=== PATIENT | male | born 1975 | race Caucasian/White ===

== ENCOUNTER 2016-06-27 12:54 | Emergency (ER) | payer MEDICAID ==
[~2016-06-27] VITALS: Ht 180.3 cm; Wt 80.0 kg
--- OUTSIDE RECORDS SUMMARY | 2016-06-27 12:59 | XMS REPORT ---
Author Amanuel Romero Organization [employer] Address Unknown Phone Unavailable Care Team Providers Care Glass Belt Sander Name Role Phone Amanuel Hines CP Unavailable Allergies, Adverse Reactions, Alerts Substance Reaction Event Type N.K.D.A. Info Not Available Non Drug Allergy Problems Problem Type Condition ICD-9 Code Onset Dates Condition Status Problem Lumbosacral radiculopathy due to degenerative joint disease of spine 722.52 Active Assessment Lumbosacral radiculopathy due to degenerative joint disease of spine 722.52 Active Problem Osteomyelitis 730.20 Active Medications Medication Code System Code Instructions Start Date End Date Status Dosage Hydrocodone-Acetaminophen NDC [address]-24 7.5-325 MG Orally TID Mar 14, 2013 Active 1 tablet as needed Ibuprofen NDC 0 800MG Not Specified Orally TID Active take one tablet by mouth three times a day Gabapentin NDC [address]-20 600 MG Orally TID Active 1 Caplet Procedures Procedure Coding System Code Date OFFICE VISITEST PT CPT-4 04244 Dec 19, 2013 Vital Signs Date/Time: Dec 19, 2013 Blood Pressure Systolic 122 mm Hg Height 72 in Weight 176 lbs BMI 23.87 Index Cardiac Monitoring Heart Rate 76 /min Temperature 98.8 F Blood Pressure Diastolic 78 mm Hg Results No Known Results Summary Purpose [employer] Submission
--- OUTSIDE RECORDS SUMMARY | 2016-06-27 12:59 | XMS REPORT ---
Author Author Amanuel Hines Organization [employer] Address Unknown Phone Unavailable Care Team Providers Care Order Picker Name Role Phone Amanuel Hines CP Unavailable Allergies No Known Allergies Problems Problem Type Condition Code Onset Dates Condition Status Problem Lumbosacral radiculopathy due to degenerative joint disease of spine 722.52 Active Medications No Known Medications Results No Known Results Summary Purpose [employer] Submission
--- OUTSIDE RECORDS SUMMARY | 2016-06-27 12:59 | XMS REPORT ---
Author Amanuel Romero Organization [employer] Address Unknown Phone Unavailable Care Team Providers Care Shear Operator Helper Name Role Phone Amanuel Hines CP Unavailable Allergies No Known Allergies Problems Problem Type Condition ICD-9 Code Onset Dates Condition Status Problem Lumbosacral radiculopathy due to degenerative joint disease of spine 722.52 Active Problem Osteomyelitis 730.20 Active Medications Medication Code System Code Instructions Start Date End Date Status Dosage Gabapentin [facility] [address]-43 600 MG Orally TID Active 1 caplet Results No Known Results Summary Purpose [employer] Submission
--- OUTSIDE RECORDS SUMMARY | 2016-06-27 12:59 | XMS REPORT ---
Author Amanuel Romero Organization [employer] Address Unknown Phone Unavailable Care Team Providers Care Automobile Parts Assembler Name Role Phone Amanuel Hines CP Unavailable Allergies, Adverse Reactions, Alerts Substance Reaction Event Type N.K.D.A. Info Not Available Non Drug Allergy Problems Problem Type Condition ICD-9 Code Onset Dates Condition Status Assessment Lumbosacral radiculopathy due to degenerative joint disease of spine 722.52 Active Problem Lumbosacral radiculopathy due to degenerative joint disease of spine 722.52 Active Medications Medication Code System Code Instructions Start Date End Date Status Dosage Gabapentin NDC [address]-82 600 MG Orally TID 1 caplet Cymbalta NDC [address]-58 60 MG Orally Once a day September 07, 2014 1 capsule Ibuprofen NDC 0 800MG Not Specified Orally TID take one tablet by mouth three times a day Hydrocodone-Acetaminophen NDC [address]-99 7.5-325 MG Orally TID Mar 14, 2013 1 tablet as needed Procedures Procedure Coding System Code Date OFFICE VISITEST PT CPT-4 40055 Oct 04, 2014 Vital Signs Date/Time: Oct 04, 2014 Blood Pressure Systolic 130 mm Hg Height 72 in Weight 170.2 lbs BMI 23.08 Index Blood Pressure Diastolic 76 mm Hg Results No Known Results Summary Purpose [employer] Submission
--- OUTSIDE RECORDS SUMMARY | 2016-06-27 12:59 | XMS REPORT ---
Author Amanuel Romero Organization [employer] Address Unknown Phone Unavailable Care Team Providers Care Director Physical Therapy Name Role Phone Amanuel Hines CP Unavailable [...] Instructions Start Date End Date Status Dosage Ibuprofen NDC 0 800MG Not Specified Orally TID Active take one tablet by mouth three times a day Gabapentin NDC [address]-48 600 MG Orally TID Active 1 caplet Hydrocodone-Acetaminophen NDC [address]-36 7.5-325 MG Orally TID Mar 14, 2013 Active 1 tablet as needed Procedures Procedure Coding System Code Date OFFICE VISITEST PT CPT-4 96143 Jan 16, 2014 Vital Signs Date/Time: Jan 16, 2014 Blood Pressure Systolic 110 mm Hg Height 72 in Weight 172 lbs BMI 23.32 Index Cardiac Monitoring Heart Rate 72 /min Temperature 98.4 F Blood Pressure Diastolic 60 mm Hg Results No Known Results Summary Purpose [employer] Submission
--- OUTSIDE RECORDS SUMMARY | 2016-06-27 12:59 | XMS REPORT ---
Author Author Amanuel Hines Organization [employer] Address Unknown Phone Unavailable Care Team Providers Care First Mate Name Role Phone Amanuel Hines CP Unavailable Allergies No Known Allergies Problems Problem Type Condition ICD-9 Code Onset Dates Condition Status Problem Lumbosacral radiculopathy due to degenerative joint disease of spine 722.52 Active Medications No Known Medications Results No Known Results Summary Purpose [employer] Submission
--- OUTSIDE RECORDS SUMMARY | 2016-06-27 12:59 | XMS REPORT ---
Author Amanuel Romero Organization [employer] Address Unknown Phone Unavailable Care Team Providers Care Refractory Manager Name Role Phone Amanuel Hines CP Unavailable [...] mouth three times a day Hydrocodone-Acetaminophen NDC [address]-77 7.5-325 MG Orally TID Mar 14, 2013 Active 1 tablet as needed Gabapentin NDC [address]-34 600 MG Orally TID Active 1 Caplet Procedures Procedure Coding System Code Date OFFICE VISITEST PT CPT-4 61014 Nov 22, 2013 Vital Signs Date/Time: Nov 22, 2013 Blood Pressure Systolic 132 mm Hg Height 72 in Weight 176 lbs BMI 23.87 Index Cardiac Monitoring Heart Rate 76 /min Temperature 98.5 F Blood Pressure Diastolic 72 mm Hg Results No Known Results Summary Purpose [employer] Submission
--- OUTSIDE RECORDS SUMMARY | 2016-06-27 13:00 | XMS REPORT ---
Author Amanuel Romero Organization [employer] Address Unknown Phone Unavailable Care Team Providers Care Business Operations Manager Name Role Phone Amanuel Hines CP Unavailable Allergies, Adverse Reactions, Alerts Substance Reaction Event Type N.K.D.A. Info Not Available Non Drug Allergy Problems Problem Type Condition Code Onset Dates Condition Status Assessment Lumbosacral radiculopathy due to degenerative joint disease of spine 722.52 Active Problem Lumbosacral radiculopathy due to degenerative joint disease of spine 722.52 Active Medications Medication Code System Code Instructions Start Date End Date Status Dosage Gabapentin [facility] [address]-18 600 MG Orally TID 1 caplet Ibuprofen NDC 0 800MG Not Specified Orally TID take one tablet by mouth three times a [place] [address]-25 7.5-325 MG Orally TID Mar 14, 2013 1 tablet as needed Procedures Procedure Coding System Code Date OFFICE VISITEST PT CPT-4 83184 June 22, 2014 Vital Signs Date/Time: June 22, 2014 Blood Pressure Systolic 114 mm Hg Height 72 in Weight 175 lbs BMI 23.73 Index Cardiac Monitoring Heart Rate 64 /min Temperature 97.9 F Blood Pressure Diastolic 72 mm Hg Results No Known Results Summary Purpose [employer] Submission
--- OUTSIDE RECORDS SUMMARY | 2016-06-27 13:00 | XMS REPORT ---
Author Author Amanuel Hines Organization [employer] Address Unknown Phone Unavailable Care Team Providers Care Continuous Improvement Consultant Name Role Phone Amanuel Hines CP Unavailable [...] Start Date End Date Status Dosage Hydrocodone-Acetaminophen [facility] [address]-65 7.5-325 MG Orally TID Mar 14, 2013 1 tablet as needed Gabapentin [facility] [address]-82 600 MG Orally TID 1 caplet Ibuprofen NDC 0 800MG Not Specified Orally TID take one tablet by mouth three times a day Cymbalta [facility] [address]-31 60 MG Orally Once a day September 07, 2014 1 capsule Procedures Procedure Coding System Code Date OFFICE VISITEST PT CPT-4 37425 Oct 31, 2014 Vital Signs Date/Time: Oct 31, 2014 Blood Pressure Systolic 104 mm Hg Height 72 in Weight 171 lbs BMI 23.19 Index Blood Pressure Diastolic 74 mm Hg Results No Known Results Summary Purpose [employer] Submission
--- OUTSIDE RECORDS SUMMARY | 2016-06-27 13:00 | XMS REPORT ---
Author Amanuel Romero Organization [employer] Address Unknown Phone Unavailable Care Team Providers Care Trauma Coordinator Name Role Phone Amanuel Hines CP Unavailable [...] Start Date End Date Status Dosage Hydrocodone-Acetaminophen [facility] [address]-70 7.5-325 MG Orally TID Mar 14, 2013 Active 1 [place] [address]-94 600 MG Orally TID Active 1 caplet Ibuprofen NDC 0 800MG Not Specified Orally TID Active take one tablet by mouth three times a day Procedures Procedure Coding System Code Date OFFICE VISITEST PT CPT-4 89287 Feb 10, 2014 Vital Signs Date/Time: Feb 10, 2014 Blood Pressure Systolic 104 mm Hg Height 72 in Weight 172 lbs BMI 23.32 Index Temperature 98.6 F Blood Pressure Diastolic 62 mm Hg Results No Known Results Summary Purpose [employer] Submission
--- OUTSIDE RECORDS SUMMARY | 2016-06-27 13:00 | XMS REPORT ---
Author Amanuel Romero Organization [employer] Address Unknown Phone Unavailable Care Team Providers Care Copy Center Specialist Name Role Phone Amanuel Hines CP Unavailable [...] Date End Date Status Dosage Gabapentin NDC [address]-19 600 MG Orally TID 1 caplet Hydrocodone-Acetaminophen NDC [address]-17 7.5-325 MG Orally TID Mar 14, 2013 1 tablet as needed Ibuprofen NDC 0 800MG Not Specified Orally TID take one tablet by mouth three times a day Procedures Procedure Coding System Code Date OFFICE VISITEST PT CPT-4 41775 May 26, 2014 Vital Signs Date/Time: May 26, 2014 Blood Pressure Systolic 112 mm Hg Height 72 in Weight 173 lbs BMI 23.46 Index Cardiac Monitoring Heart Rate 64 /min Temperature 98.2 F Blood Pressure Diastolic 80 mm Hg Results No Known Results Summary Purpose [employer] Submission
--- OUTSIDE RECORDS SUMMARY | 2016-06-27 13:00 | XMS REPORT | Continuity of Care Document ---
Author Author [facility] Organization [facility] Address Unknown Phone Unavailable Allergies Active Description Code Type Severity Reaction Onset Reported/Identified Relationship to Patient Clinical Status Yes No Known Allergies No Known Allergies Drug Allergy Unknown N/A 04/08/2015 Medications Problems Date Dx Coded Attending Type Code Diagnosis Diagnosed By 02/12/2016 SUSAN BLUE G89.29 OTHER CHRONIC PAIN 05/07/2016 SUSAN BLUE G89.29 OTHER CHRONIC PAIN Procedures Results Encounters ACCT No. Visit Date/Time Discharge Status Pt. Type Provider Facility Loc./Unit Complaint [id number] 05/04/2015 16:17:00 2015 18:01:[id number] 04/08/2015 14:43:00 2015 16:53:00 [id number] 09/15/2014 21:04:00 2014 22:25:00 [id number] 05/27/2014 21:54:00 2014 23:53:00 DIS Emergency [facility]YALA[facility]
--- OUTSIDE RECORDS SUMMARY | 2016-06-27 13:00 | XMS REPORT ---
Author Amanuel Romero Organization [employer] Address Unknown Phone Unavailable Care Team Providers Care Cancer Genetics Assistant Name Role Phone Amanuel Hines CP Unavailable [...] Start Date End Date Status Dosage Hydrocodone-Acetaminophen [facility] [address]-22 7.5-325 MG Orally TID Mar 14, 2013 1 [place] [address]-27 600 MG Orally TID 1 caplet Ibuprofen NDC 0 800MG Not Specified Orally TID take one tablet by mouth three times a day Procedures Procedure Coding System Code Date OFFICE VISITEST PT CPT-4 47071 August 07, 2014 Vital Signs Date/Time: August 07, 2014 Blood Pressure Systolic 122 mm Hg Height 72 in Weight 166 lbs BMI 22.51 Index Cardiac Monitoring Heart Rate 64 /min Temperature 98.2 F Blood Pressure Diastolic 60 mm Hg Results No Known Results Summary Purpose [employer] Submission
--- OUTSIDE RECORDS SUMMARY | 2016-06-27 13:00 | XMS REPORT ---
Author Amanuel Romero Organization [employer] Address Unknown Phone Unavailable Care Team Providers Care Assisted Living Associate Name Role Phone Amanuel Hines CP Unavailable Allergies No Known Allergies Problems Problem Type Condition ICD-9 Code Onset Dates Condition Status Problem Lumbosacral radiculopathy due to degenerative joint disease of spine 722.52 Active Medications No Known Medications Results No Known Results Summary Purpose [employer] Submission
--- OUTSIDE RECORDS SUMMARY | 2016-06-27 13:00 | XMS REPORT ---
Author Author Amanuel Hines Organization [employer] Address Unknown Phone Unavailable Care Team Providers Care O And M Supervisor Name Role Phone Amanuel Hines CP Unavailable Allergies No Known Allergies Problems Problem Type Condition ICD-9 Code Onset Dates Condition Status Problem Lumbosacral radiculopathy due to degenerative joint disease of spine 722.52 Active Medications No Known Medications Results No Known Results Summary Purpose [employer] Submission
--- OUTSIDE RECORDS SUMMARY | 2016-06-27 13:00 | XMS REPORT ---
Author Author Amanuel Hnies Organization [employer] Address Unknown Phone Unavailable Care Team Providers Care Low Emission Automobile Designer Name Role Phone Amanuel Hines CP Unavailable Allergies No Known Allergies Problems Problem Type Condition Code Onset Dates Condition Status Problem Lumbosacral radiculopathy due to degenerative joint disease of spine 722.52 Active Medications No Known Medications Results No Known Results Summary Purpose [employer] Submission
--- OUTSIDE RECORDS SUMMARY | 2016-06-27 13:00 | XMS REPORT ---
Author Amanuel Romero Organization [employer] Address Unknown Phone Unavailable Care Team Providers Care Clinical Staff Rn Name Role Phone Amanuel Hines CP Unavailable [...] Start Date End Date Status Dosage Hydrocodone-Acetaminophen [facility] [address]-13 7.5-325 MG Orally TID Mar 14, 2013 1 [place] [address]-90 600 MG Orally TID 1 caplet Ibuprofen NDC 0 800MG Not Specified Orally TID take one tablet by mouth three times a day Procedures Procedure Coding System Code Date OFFICE VISITEST PT CPT-4 16997 May 01, 2014 Vital Signs Date/Time: May 01, 2014 Blood Pressure Systolic 112 mm Hg Height 72 in Weight 175 lbs BMI 23.73 Index Cardiac Monitoring Heart Rate 64 /min Temperature 98.9 F Blood Pressure Diastolic 78 mm Hg Results No Known Results Summary Purpose [employer] Submission
--- OUTSIDE RECORDS SUMMARY | 2016-06-27 13:00 | XMS REPORT ---
Author Author Amanuel Hines Organization [employer] Address Unknown Phone Unavailable Care Team Providers Care Special Education Preschool Teacher Name Role Phone Amanuel Hines CP Unavailable Allergies No Known Allergies Problems Problem Type Condition ICD-9 Code Onset Dates Condition Status Problem Lumbosacral radiculopathy due to degenerative joint disease of spine 722.52 Active Medications No Known Medications Results No Known Results Summary Purpose [employer] Submission
--- OUTSIDE RECORDS SUMMARY | 2016-06-27 13:00 | XMS REPORT ---
Author Author Amanuel Hines Organization [employer] Address Unknown Phone Unavailable Care Team Providers Care Competency Evaluated Nurse Aide Name Role Phone Amanuel Hines CP Unavailable Allergies, Adverse Reactions, Alerts Substance Reaction Event Type N.K.D.A. Info Not Available Non Drug Allergy Problems Problem Type Condition ICD-9 Code Onset Dates Condition Status Assessment Lumbosacral radiculopathy due to degenerative joint disease of spine 722.52 Active Assessment Chronic pain 338.29 Active Problem Lumbosacral radiculopathy due to degenerative joint disease of spine 722.52 Active Medications Medication Code System Code Instructions Start Date End Date Status Dosage Hydrocodone-Acetaminophen [facility] [address]-73 7.5-325 MG Orally TID Mar 14, 2013 1 tablet as needed Gabapentin [facility] [address]-32 600 MG Orally TID 1 caplet Cymbalta [facility] [address]-10 60 MG Orally Once a day September 07, 2014 1 capsule Ibuprofen NDC 0 800MG Not Specified Orally TID take one tablet by mouth three times a day Procedures Procedure Coding System Code Date OFFICE VISITEST PT CPT-4 36703 September 07, 2014 Vital Signs Date/Time: September 07, 2014 Blood Pressure Systolic 138 mm Hg Height 72 in Weight 163.8 lbs BMI 22.21 Index Cardiac Monitoring Heart Rate 96 /min Temperature 98.1 F Blood Pressure Diastolic 60 mm Hg Results No Known Results Summary Purpose [employer] Submission
--- OUTSIDE RECORDS SUMMARY | 2016-06-27 13:00 | XMS REPORT ---
Author Amanuel Romero Organization [employer] Address Unknown Phone Unavailable Care Team Providers Care Edge Trimmer Name Role Phone Amanuel Hines CP Unavailable [...] mouth three times a [place] [address]-52 600 MG Orally TID 1 caplet Hydrocodone-Acetaminophen NDC [address]-44 7.5-325 MG Orally TID Mar 14, 2013 1 tablet as needed Procedures Procedure Coding System Code Date OFFICE VISITEST PT CPT-4 07120 Mar 08, 2014 Vital Signs Date/Time: Mar 08, 2014 Blood Pressure Systolic 118 mm Hg Height 72 in Weight 179 lbs BMI 24.27 Index Cardiac Monitoring Heart Rate 68 /min Temperature 98.6 F Blood Pressure Diastolic 70 mm Hg Results No Known Results Summary Purpose [employer] Submission
--- OUTSIDE RECORDS SUMMARY | 2016-06-27 13:00 | XMS REPORT ---
Author Author Amanuel Hines Organization [employer] Address Unknown Phone Unavailable Care Team Providers Care Physician Scientist Name Role Phone Amanuel Hines CP Unavailable Allergies No Known Allergies Problems Problem Type Condition ICD-9 Code Onset Dates Condition Status Problem Lumbosacral radiculopathy due to degenerative joint disease of spine 722.52 Active Medications No Known Medications Results No Known Results Summary Purpose [employer] Submission
[2016-06-27 13:16] VITALS: Ht 180.3 cm; Wt 80.0 kg
[2016-06-27] MEDS ORDERED: HYDR-4246 PO (13:55)
[2016-06-27] MEDS ORDERED: AMOX875T2 PO (13:55)
[2016-06-27] MEDS ORDERED: GABA-354 PO (13:56)
--- NOTE | 2016-06-27 13:56 | ERPDOC ---
Departure Disposition Decision Date: June 27, 2016 Disposition Decision Time: 13:53 Disposition: 01 DISCHARGED HOME, SELF-CARE Impression Impression Impression: Primary Impression: Acute sinusitis Sinusitis location: unspecified location Recurrence: non-recurrent Qualified Codes: J01.90 - Acute sinusitis, unspecified Severity: Mild Condition: Improved Seen By: Physician only Referrals: [facility] 2 Days Patient Instructions: Sinusitis (ED) Problems/Meds/Labs Reviewed?: Yes Medications reviewed and manag: Yes Follow up care ordered?: Yes Mental Status: Alert, Oriented Scripts Hydrocodone/Acetaminophen (Easton 5-325 Tablet) 5-325 Tablet 1 TAB PO Q4HR Y for PAIN for 2 Days, #12 TAB 0 Refills Prov: GALLITO GANDHI DO 06/27/16 Amoxicillin (Amoxicillin) 875 Mg Tablet 1 TAB PO Q12H for 14 Days, #28 TAB 0 Refills Prov: GALLITO GANDHI DO 06/27/16 HPI - General Medical General Chief Complaint: Headache Stated Complaint: HEADACHE Time Seen by Provider: 13:47 Source: patient Exam Limitations: no limitations HPI - General Medical Initial Comments 40-year-old male presents to the emergency department with a chief complaint of nasal congestion, post-nasal drip, and pressure in his maxillary and frontal sinuses. Patient noted onset of symptoms 2 days ago. Symptoms are similar to patient's prior exacerbations of sinusitis. Patient describes his headache as moderate. No radiation. It is dull. He notes the headache improves with Easton 10 that he takes for his chronic back pain. Patient denies any other complaints or associated symptoms. Patient was at home when the symptoms began. He denies trauma or injury. Symptoms have been gradual in progression in nature. Patient denies any other complaints or associated symptoms. Occurred At: home Onset: Gradual Allergies: Coded Allergies: No Known Allergies (Unverified , 06/27/16) Past History Past Medical History Pt denies signifigant [facility] Surgical History Denies Surgeries Family History Family History: Negative Social History Smoking Status: Never smoker Substance Use Type: does not use Alcohol Intake: none Review of Systems Constitutional Constitutional: DENIES: chills, fever Eyes General: DENIES: erythema, exudate Lids/Accessories: DENIES: erythema, swelling Vision: DENIES: acuity, blurring ENMT Ears: DENIES: drainage, erythema Hearing: DENIES: hearing loss Balance: DENIES: ataxia, falling to one side Sinuses: DENIES: congestion, pain Nose: DENIES: nosebleeds, pain Mouth/Throat: DENIES: drooling, sore throat Teeth: DENIES: pain Jaw: DENIES: pain Cardiovascular Cardiac: DENIES: chest pain, dyspnea on exertion Rhythm/Rate: DENIES: irregular beat, palpitations Vascular: DENIES: pedal edema, unilateral swelling Pulmonary Respiratory: DENIES: cough, dyspnea, pleuritic chest pain, sputum GI Upper Abdomen: DENIES: nausea, pain, vomiting Lower Abdomen: DENIES: diarrhea, pain General: DENIES: dysuria, frequency, urgency Musculoskeletal General: DENIES: joint pain, tenderness Integumentary Skin: DENIES: itching, rash Neurological General: headache, DENIES: change in strength, numbness, weakness Psychiatric Psychiatric: DENIES: emotional instability, suicidal ideation/attempt Endocrine Endocrine: DENIES: polydipsia, polyphagia Hematologic/Lymphatic Hematologic/Lymphatic: DENIES: frequent nosebleeds, lymphadenopathy Allergic/Immunological Allergic/Immunoligical: DENIES: allergic reactions, hives Physical Exam General General Nourishment: well nourished, well developed, appears stated age, no acute distress, adult General Body Habitus: well groomed Vitals and Pain First Documented Vital Signs Date Time Temp Pulse Resp B/P Pulse Ox O2 Delivery O2 Flow Rate FiO2 06/27/16 13:16 99.8 86 14 127/77 99 Room Air Weight: Kilograms: 80.000 Height (feet): 5 Height (inches): 11.00 Triage Pain Scale: RN VS reviewed by Provider: Yes Normal Exams: Head: Normocephalic w/o trauma Eyes: Pupils are PERRLA w/ EOMI, No scleral icterus, irritation, or foreign bodies noted ENMT: No facial trauma, nasal exudates, pharyngeal erythema, or exudates are noted Dental: No fractured, loose, or missing teeth noted Neck: Full range of motion, without adenopathy, JVD, bruits or thyromegaly Chest/Resp: Clear all grimes, with good airflow, and symmetry bilaterally CV: Regular rate and rhythm, without murmur or gallop, Pulses 2+ all extremities, capillary refill, <2 seconds all ext., no pedal edema noted Abdomen: Bowel sounds positive, soft, non-tender, non-distended, no hepatosplenomegaly, masses or bruits noted Lymphatic: No lymphadenopathy, or lymphedema noted Musculoskeletal: No tenderness, or deformity noted, good range of motion, all extremities Integumentary: No rashes, hives, or bruising noted, hair and nails, without abnormality Neurologic: Patient is alert, and oriented, cranial nerves, motor/sensory/ cerebellar, exams w/o gross deficits, to observation Psychiatric: Patient exhibits, appropriate attention, emotion and affect Neurologic (brief) Comments Alert and oriented x 4. CN 2-12 intact. Sensation intact. Normal motor. Normal gait. Normal coordination. Normal speech. Absent Babinski bilaterally. Reflexes 2/4 in all extremities. Normal neurologic examination. No focal neurologic deficit. Normal strength. Differential Diagnoses Considering: Other (general headache/tension headache/migraine headache/acute sinusitis) Progress Progress Progress Patient was recommended to undergo CT scan of the head /sinuses which he declines. Patient declines offered analgesic pain medication. Patient is provided with a prescription for amoxicillin 875 mg by mouth twice a day 14 days. Patient is instructed to use Flonase [id number] as directed. Patient is in agreement with the current plan of management. Patient is discharged home in improved condition. Patient is to follow up as instructed. Patient is to return to the emergency Department if his condition worsens or changes in any manner. GALLITO GANDHI DO June 27, 2016 13:55
[2016-06-27] MEDS ORDERED: HYDR-4078 PO (13:57)
[2016-06-27 14:18] VITALS: BP 118/72; PULSE 88; RESP 16; TEMP 99.7; O2SAT 96
--- NOTE | 2016-06-27 14:18 | NUR ---
DISMISS PT AMBULATORY TO LOBBY AT THIS TIME. GAIT STEADY; PT DENIES FURTHER QUESTIONS.
--- OUTSIDE RECORDS SUMMARY | 2016-06-27 14:39 | XMS REPORT | Continuity of Care Document ---
Author Author [facility] Organization [facility] Address Unknown Phone Unavailable Allergies Active Description [...] Status Pt. Type Provider Facility Loc./Unit Complaint [id number] 05/04/2015 16:17:00 2015 18:01:00 [id number] 04/08/2015 14:43:00 2015 16:53:00 [id number] 09/15/2014 21:04:00 2014 22:25:00 DIS [id number] 05/27/2014 21:54:00 2014 23:53:00 DIS Emergency [facility]YALA, [facility]
== END 2016-06-27 14:18 | disposition home or self-care (01) ==
LOC: ED 12:54
DX: J01.90 Acute sinusitis, unspecified (principal)